=== PATIENT | female | born 1965 | race Caucasian/White ===

== ENCOUNTER → 2017-08-04 | Outpatient (REF) | payer OTHER ==
[~2017-08-04] MED LIST: AMOX-556 PO; AMOX1TAB9 PO; CHOL100034 PO; CHOL378P6 PO; CHOL4PAC2 PO; DOC100 PO; DOXE50CA46 PO; FLUT16SP19 NS; FURO-47 PO; HYDR-385 PO; HYDR-4228 PO; HYDR10TA3 PO; INSU100I35 SQ; INSU300I SQ; LANI SUBQ; LYSI500T34 PO; NO RX MEDS; PER PO; PHYT100T4 PO; SPIR50TA31 PO; VIT1CAPS33 PO; [UNRECOGNIZED DRUG - CODE] TP; [UNRECOGNIZED DRUG - OTHER]; [UNRECOGNIZED DRUG - OTHER] PO; [UNRECOGNIZED DRUG - OTHER] PO; immuplex PO
== END ==
LOC: ZZSENDIN 09:39
PROVIDERS: ATTEND Family Medicine
DX: Z48.23 Encounter for aftercare following liver transplant (principal)
CPT/HCPCS: 80169; 80197

== ENCOUNTER → 2017-08-28 | Outpatient (REF) | payer OTHER | LOC: ZZSENDIN 10:11 | PROVIDERS: ATTEND Family Medicine | DX: Z48.23 Encounter for aftercare following liver transplant (principal) | CPT/HCPCS: 80169; 80197 ==

== ENCOUNTER → 2017-09-22 | Outpatient (REF) | payer OTHER | LOC: ZZSENDIN 10:36 | PROVIDERS: ATTEND Family Medicine | DX: Z48.23 Encounter for aftercare following liver transplant (principal) | CPT/HCPCS: 80169; 80197; 82570; 84156 ==

== ENCOUNTER → 2017-10-02 | Outpatient (CLI) | payer OTHER ==
--- NOTE | 2017-10-02 14:21 | RADIOLOGY IMAGING REPORT ---
FACILITY: [facility] - [place] PATIENT NAME: BRENNA POWERS : [id number] MR: [id number] V: [id number] EXAM DATE: [id number] ORDERING PHYSICIAN: RIZWANA YE TECHNOLOGIST: Ranjana Huber PROCEDURE:BILATERAL DIGITAL SCREENING MAMMOGRAM WITH CAD ASSISTED INTERPRETATION & 3D TOMOSYNTHESIS COMPARISON:Prior mammogram 11/02/14, 08/02/13 INDICATIONS:SCREENING/FAMILY HISTORY OF BREAST CARCINOMA IN MOTHER AND MATERNAL AUNT. TISSUE DENSITY: Scattered fibroglandular density. FINDINGS: Views obtained bilateral 2D full field CC & MLO, and corresponding 3D tomography. There is no mammographic finding suspicious for malignancy, and no significant change compared to prior mammograms. DIAGNOSTIC CATEGORY 1--NEGATIVE. RECOMMENDATIONS: ROUTINE MAMMOGRAM AND CLINICAL EVALUATION. IMPRESSION: BIRADS 1: Negative Annual bilateral screening mammogram. Dictated by: Montserrat Malin M.D. on 10/02/2017 at 11:47 Transcribed by: MISA on 10/02/2017 at 13:49 Approved by: Montserrat Malin M.D. on 10/02/2017 at 14:20 [facility]
== END ==
LOC: MAMO 02:05
PROVIDERS: ATTEND Family Medicine
DX: Z12.31 Encounter for screening mammogram for malignant neoplasm of breast (principal)
CPT/HCPCS: 77063; 77067

== ENCOUNTER → 2017-10-14 | Outpatient (REF) | payer OTHER | LOC: ZZSENDIN 09:22 | PROVIDERS: ATTEND Family Medicine | DX: Z48.23 Encounter for aftercare following liver transplant (principal) | CPT/HCPCS: 80197 ==

== ENCOUNTER → 2017-11-05 | Outpatient (REF) | payer OTHER | LOC: ZZSENDIN 09:57 | PROVIDERS: ATTEND Family Medicine | DX: Z48.23 Encounter for aftercare following liver transplant (principal) | CPT/HCPCS: 80197 ==